=== PATIENT | male | born 1955 | race Caucasian/White ===

== ENCOUNTER 2017-06-30 20:18 | Emergency (ER) | payer BC, OTHER ==
[2017-07-01] MEDS: LIDOCAINE 2% VISC 15 ML CUP TOP
== END 2017-07-01 00:09 | disposition home or self-care (01) ==
LOC: FTE 20:18
DX: T16.2XXA Foreign body in left ear, initial encounter (principal); F17.210 Nicotine dependence, cigarettes, uncomplicated; X58.XXXA Exposure to other specified factors, initial encounter; Y92.9 Unspecified place or not applicable
CPT/HCPCS: 69200; 99283-25